=== PATIENT | male | born 1970 | race American Indian/Alaskan Native ===

== ENCOUNTER 2019-11-20 11:36 | Emergency (ER) | payer OTHER ==
[2019-11-20 11:47] VITALS: BP 167/105
[2019-11-20] MEDS ORDERED: IBUPROFEN 600 MG TAB PO ONE (11:58)
[2019-11-20] MEDS ORDERED: NEOMY 3.5 MG/BACIT 400 UNITS/POLY B 5000 UNITS/GM OINT PACKET TP ONE (11:58)
[2019-11-20] MEDS ORDERED: DIPHtheria,PERTUSSIS(ACELL),TETANUS VACCINE/PF 0.5 ML VIAL IM ONE (11:58)
[2019-11-20] MEDS ORDERED: SULFAMETHOXAZOLE/TRIMETHOPRIM 800/160MG DS TAB PO ONE (11:58)
[2019-11-20] MEDS ORDERED: SODIUM CHLORIDE 0.9% IRR 500 ML BOTTLE IR ONE (11:58)
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
== END 2019-11-20 12:45 | disposition home or self-care (01) ==
LOC: ED 11:36
DX: S40.872A Other superficial bite of left upper arm, initial encounter (principal); S39.012A Strain of muscle, fascia and tendon of lower back, initial encounter; Z79.1 Long term (current) use of non-steroidal anti-inflammatories (NSAID); Z79.899 Other long term (current) drug therapy; Z88.0 Allergy status to penicillin; Y04.1XXA Assault by human bite, initial encounter; Y93.89 Activity, other specified; Y92.89 Other specified places as the place of occurrence of the external cause; Y99.8 Other external cause status
CPT/HCPCS: 90471; 90715; A6250

== ENCOUNTER 2021-09-17 21:45 | Emergency (ER) | payer SELFPAY ==
[2021-09-17 21:53] VITALS: BP 158/99
[2021-09-18] MEDS ORDERED: IBUPROFEN 800 MG TAB PO ONE (02:10)
[2021-09-18] MEDS ORDERED: ACETAMINOPHEN W/CODEINE 300-30 MG TAB PO ONE (02:10)
[2021-09-18] MEDS ORDERED: predniSONE 20 MG TAB PO ONE (02:10)
--- NOTE | 2021-09-18 02:39 | Emergency Department Report ---
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 Patient rates pain at 5/10 radiating to right instep to the right lateral foot. There is intermittent swelling. 5/10 pain is exacerbated by prolonged standing and weightbearing. Pain is relieved by nothing tried. Patient denies fall injury or trauma. There is been no drainage wounds or sores. No history of diabetes or peripheral artery disease. Severity scale (0 -10): 10 - Related Data Previous Rx's Medication Instructions Recorded Last Taken Type Cyclobenzaprine [Flexeril] 10 mg PO TID PRN #10 tablet 11/20/19 Unknown Rx Ibuprofen [Motrin] 800 mg PO Q8HR PRN #30 tablet 11/20/19 Unknown Rx Sulfamethoxazole/Trimethoprim 1 each PO BID #10 tablet 11/20/19 Unknown Rx [Bactrim DS TAB] predniSONE [Deltasone] 20 mg PO DAILY #5 tablet 11/20/19 Unknown Rx Ibuprofen [Motrin 800 MG tab] 800 mg PO Q8HR PRN #30 tablet 09/18/21 Unknown Rx predniSONE [Deltasone] 40 mg PO QDAY 5 Days #10 tab 09/18/21 Unknown Rx Allergies Allergy/AdvReac Type Severity Reaction Status Date / Time Penicillins Allergy Unknown Verified 11/20/19 11:43 ED Review of Systems ROS: Stated complaint: FOOT SWELLING Other details as noted in HPI Constitutional: denies: chills, fever Eyes: denies: eye pain, eye discharge, vision change ENT: denies: ear pain, throat pain Respiratory: denies: cough, shortness of breath, wheezing Cardiovascular: denies: chest pain, palpitations Endocrine: no symptoms reported Gastrointestinal: denies: abdominal pain, nausea, diarrhea Genitourinary: denies: urgency, dysuria Musculoskeletal: other (Right foot and big toe pain). denies: back pain, joint swelling, arthralgia Skin: denies: rash, lesions Neurological: denies: headache, weakness, paresthesias Psychiatric: denies: anxiety, depression Hematological/Lymphatic: denies: easy bleeding, easy bruising ED Past Medical Hx - Social History Smoking Status: Never Smoker Substance Use Type: Alcohol - Medications Home Medications: Home Medications Medication Instructions Recorded Confirmed Last Taken Type Cyclobenzaprine [Flexeril] 10 mg PO TID PRN #10 tablet 11/20/19 Unknown Rx Ibuprofen [Motrin] 800 mg PO Q8HR PRN #30 tablet 11/20/19 Unknown Rx Sulfamethoxazole/Trimethoprim 1 each PO BID #10 tablet 11/20/19 Unknown Rx [Bactrim DS TAB] predniSONE [Deltasone] 20 mg PO DAILY #5 tablet 11/20/19 Unknown Rx Ibuprofen [Motrin 800 MG tab] 800 mg PO Q8HR PRN #30 tablet 09/18/21 Unknown Rx predniSONE [Deltasone] 40 mg PO QDAY 5 Days #10 tab 09/18/21 Unknown Rx ED Physical Exam - General Limitations: No Limitations General appearance: alert, in no apparent distress - Head Head exam: Present: normocephalic, normal inspection - Eye Eye exam: Present: EOMI Pupils: Present: normal accommodation - ENT ENT exam: Present: mucous membranes moist - Neck Neck exam: Present: normal inspection, full ROM. Absent: tenderness - Respiratory Respiratory exam: Present: normal lung sounds bilaterally. Absent: respiratory distress, wheezes - Cardiovascular Cardiovascular Exam: Present: regular rate, normal rhythm, normal heart sounds. Absent: systolic murmur, diastolic murmur, rubs, gallop - GI/Abdominal GI/Abdominal exam: Present: soft, normal bowel sounds. Absent: distended, tenderness - Rectal Rectal exam: Present: deferred - Extremities Exam Extremities exam: Present: full ROM, normal capillary refill - Expanded Lower Extremity Exam Right Foot/Toe exam: Present: full ROM, tenderness, swelling, erythema (Mild erythema to right metatarsal base). Absent: abrasion, laceration, ecchymosis, deformity, crepidus, dislocation, amputation, puncture wound, foreign body, calcaneal tenderness, tenderness at base of 5th metatarsal, nail avulsion, subungual hematoma Neuro vascular tendon exam: Present: no vascular compromise Gait: Positive: observed and limited by pain 1 - Pain erythema swelling. Distal pulses intact +2 range of motion is unrestricted to all quadrants. There is no open wound. 1 - Tenderness to palpation no crepitus no erythema no fever. - Back Exam Back exam: Present: normal inspection, full ROM. Absent: tenderness - Neurological Exam Neurological exam: Present: alert, oriented X3, CN II-XII intact, reflexes normal. Absent: motor sensory deficit - Expanded Neurological Exam Expanded Patient oriented to: Present: person, place, time Motor strength exam: RUE: 5, LUE: 5, RLE: 5, LLE: 5 DTR: ankle (R): 1+, ankle (L): 1+ Best Eye Response (Arik): (4) open spontaneously Best Motor Response (Arik): (6) obeys commands Best Verbal Response (Arik): (5) oriented Inez Total: 15 - Psychiatric Psychiatric exam: Present: normal affect, normal mood - Skin Skin exam: Present: warm, dry, intact, normal color. Absent: rash ED Course Vital Signs 09/17/21 09/18/21 21:53 02:29 Temperature 98.6 F Pulse Rate 97 H Respiratory 18 18 Rate Blood Pressure 158/99 O2 Sat by Pulse 96 Oximetry - Reevaluation(s) Reevaluation #1: Prednisone 60 mg, ibuprofen 800 mg, Tylenol 3 x1. Foot x-ray. 09/18/21 02:41 ED Medical Decision Making - Radiology Data Radiology results: report reviewed, image reviewed IGHT FOOT 2 VIEW(S) INDICATION / CLINICAL INFORMATION: right foot pain and swelling COMPARISON: None available. FINDINGS: BONES / JOINT(S): No acute fracture or subluxation. Moderate degenerative arthrosis first MTP joint SOFT TISSUES: No significant abnormality. ADDITIONAL FINDINGS: None. IMPRESSION: 1. No acute findings. Signer Name: Hipolito Rider MD Signed: 09/18/2021 3:34 AM Workstation Name: [id number] Transcribed By: TL Dictated By: Hipolito Rider MD Electronically Authenticated By: Hipolito Rider MD Signed Date/Time: 09/18/21333 DD/ 2 TD/TT: - Medical Decision Making Distal pulses intact +2 [employer] less than 3 seconds bilateral. Range of motion remains intact and unrestricted, on x-ray no fracture noted degenerative changes to right great toe. Plan DC to home with prescriptions. Follow-up with podiatry in 2 to 3 days. Patient verbalized agreement and understanding of discharge plan. Patient DC'd home in stable condition at this time. Critical care attestation.: If time is entered above; I have spent that time in minutes in the direct care of this critically ill patient, excluding procedure time. ED Disposition Clinical Impression: Arthralgia of toe of right foot Disposition: HOME / SELF CARE / HOMELESS Is pt being admited?: No Does the pt Need Aspirin: No Condition: Stable Instructions: Musculoskeletal Pain Additional Instructions: Take medications as prescribed, use sole inserts as directed. Follow-up with your doctor in 2 to 3 days. Prescriptions: predniSONE [Deltasone] 40 mg PO QDAY 5 Days #10 tab Ibuprofen [Motrin 800 MG tab] 800 mg PO Q8HR PRN #30 tablet PRN Reason: Pain , Severe (7-10) Referrals: GWEN PURCELL DPM [Staff Physician] - 3-5 Days Forms: Work/School Release Form(ED) Time of Disposition: 03:59
--- NOTE | 2021-09-18 03:38 | XRay Report ---
RIGHT FOOT 2 VIEW(S) INDICATION / CLINICAL INFORMATION: right foot pain and swelling COMPARISON: None available. FINDINGS: BONES / JOINT(S): No acute fracture or subluxation. Moderate degenerative arthrosis first MTP joint SOFT TISSUES: No significant abnormality. ADDITIONAL FINDINGS: None. IMPRESSION: 1. No acute findings. Signer Name: Hipolito Rider MD Signed: 09/18/2021 3:34 AM Workstation Name: [id number]
== END 2021-09-18 05:19 | disposition home or self-care (01) ==
LOC: ED 21:45
DX: M25.571 Pain in right ankle and joints of right foot (principal); Z88.0 Allergy status to penicillin; F17.200 Nicotine dependence, unspecified, uncomplicated
CPT/HCPCS: 99283